=== PATIENT | female | born 1950 | race Caucasian/White ===

== ENCOUNTER 2025-02-27 13:39 | Outpatient (REF) | payer MEDICARE, SELFPAY ==
[2025-02-27 17:29] LABS: Folate 7.3 ng/mL (> or = 4.0); Vitamin B12 362 pg/mL (200-900)
== END 2025-02-27 13:40 | disposition home or self-care (01) ==
LOC: HO.LAB 13:39
PROVIDERS: PCP Internal Medicine; Visit Provider Psychiatry & Neurology Neurology
DX: G20.A1 Parkinson's disease without dyskinesia, without mention of fluctuations (principal); G62.9 Polyneuropathy, unspecified; G31.84 Mild cognitive impairment of uncertain or unknown etiology
CPT/HCPCS: 36415; 82607; 82746; 99202

== ENCOUNTER 2025-02-27 13:39 | Outpatient (AMB) | payer MEDICARE, SELFPAY ==
--- OUTSIDE RECORDS SUMMARY | 2023-10-26 09:30 | XMS_ITS ---
Author Organization [facility] Address [address] [place] [address] Care Team Providers Care Hamper Maker Name Role Phone Sam Varela MD Primary Care Provider Unavail Yannick Saavedra Unavailable [phone] gale Encounters Encounter Location Date Provider Diagnosis [facility] [address] [place] [address] 10/26/2023 Yannick Benton Plan Of Treatment No Information Progress Notes * Dai PAULINO MDOB: 1 (74 yo F)Acc No.[id number]:10/26/2023 Progress Note Patient: Dai ORR Provider: John Benton DPM :1950 A ge:72 Y S ex:Female Date:10/26/2023 Address:[address] [place], [place] [phone] Pcp:Sam Varela MD Subjective: * Chief Complaints: [...] 10/26/2023 Generated for Printi ng/Faxing/eTransmitting on: 0 02/27/2025 03:52 PM EDT
--- NOTE | 2025-02-27 13:57 | MHC.OFFVIS ---
Intake Visit Reasons: ENP-Parkinson/Tremor/Gait/Falls HPI Comments Details: The patient is a 74-year-old female presenting with tremors and possible Parkinson's disease. She reports the onset of tremors on the left side approximately a year ago, extending to the right side in recent months. There was no identifiable trigger or activity-related worsening or alleviating factor. While the tremors occasionally affect her handwriting, she denies it impacting daily activities significantly. There is an existent concern regarding her osteoarthritis, primarily affecting her knees and fingers. The patient also experiences stress-related symptoms due to her 's advanced Alzheimer's dementia, significantly impacting her quality of life. She reports no seizures or signs indicative of epilepsy. She denies any family history of Parkinson?s but has been dealing with multiple stressors, including her ?s health and a history of overcoming COVID-19 infections. Review of Systems Const Details: - Neurologic: Reports tremors in both arms; Denies difficulty with walking, eating with utensils, or significant motor impairment - Musculoskeletal: Reports osteoarthritis pain in knees and fingers - Sleep: Denies sleep disturbances such as kicking or shouting at night - General: Reports stress related to 's Alzheimer's dementia - Endocrine: Reports pre-diabetes status - Ophthalmologic/Rhinologic: Denies any specific deficits Physical Exam Neuro Other: Mental Status: Alert and oriented to person, place, and time. Normal attention. Normal spontaneous speech, fluency, and comprehension. Cranial Nerves: CN II: Visual romeo full to confrontation, visual acuity intact. CN III, IV, : Pupils equal, round, reactive to light and accommodation. Extraocular movements are normal. CN V: Facial sensation is normal. CN VII: Facial movements symmetrical. CN VIII: Hearing intact to bedside conversation is normal. CN IX, X: Palate elevates symmetrically. CN XI: Shoulder shrug and head turn symmetrical. CN XII: Tongue midline without atrophy or fasciculations. Motor: Mild diffuse atrophy in forelegs. Reflexes: DTRs are absent and planter reflexes are absent. Coordination: [id number] is ok Gait and Station: No obvious gait abnormality. No ataxia or instability. Extrapyramidal: Slightly decreased facial expression and blinking. Mild b/l hand resting tremor. Speech: Normal; no dysarthria or tremor. Assessment & Plan Assessment & Plan (1) Parkinson disease: Code(s): G20.A1 - Parkinson's disease without dyskinesia, without mention of fluctuations Category: Medical Qualifiers: Dyskinesia presence: without dyskinesia Fluctuating manifestations: without fluctuating manifestations Qualified Code(s): G20.A1 - Parkinson's disease without dyskinesia, without mention of fluctuations (2) Peripheral neuropathy: Code(s): G62.9 - Polyneuropathy, unspecified Category: Medical Qualifiers: Peripheral neuropathy type: polyneuropathy, unspecified Qualified Code(s): G62.9 - Polyneuropathy, unspecified (3) MCI (mild cognitive impairment): Code(s): G31.84 - Mild cognitive impairment of uncertain or unknown etiology Category: Medical Plan Impression: a: Mild Parkinson disease with significant arthritis, probably osteoarthritis type. b: Peripheral neuropathy c: MCI Rec: Try Carbidopa/levodopa 25/100 one in am and noontime. Orders: Orders MR head/brain wo con Today G20.A1 - Parkinson's disease without dyskinesia, without mention of fluctuations NE nerve conduction velocity Today G62.9 - Polyneuropathy, unspecified NE electromyogram (EMG) Today G62.9 - Polyneuropathy, unspecified Vitamin B12 and Folate Today G31.84 - Mild cognitive impairment of uncertain or unknown etiology Coding Level of Care Code New Pt Level 4 (88875) Diagnoses Parkinson's disease without dyskinesia or fluctuating manifestations G20.A1 Dyskinesia presence: without dyskinesia Fluctuating manifestations: without fluctuating manifestations Peripheral polyneuropathy G62.9 Peripheral neuropathy type: polyneuropathy, unspecified MCI (mild cognitive impairment) G31.84
--- OUTSIDE RECORDS SUMMARY | 2025-02-27 15:53 | XMS_ITS | Patient Health Record ---
Author [facility] Address [address] [facility] [place] [address] Care Team Providers Care Prekindergarten Teacher Name Role Phone Sam Varela MD Primary Care Provider Unavail able Yannick Benton Unavailable [phone] Allergies Allergen (clinical drug ingredient) Drug/Non Drug Allergy documented on EMR Reaction Allergy Type Onset Date Status amoxicillin Amoxicillin Unknown Drug Allergy Act doug acetaminophen / oxycodone Percocet hallucinations Drug Allergy Active Shrimp Flavor upset stomach Drug Allergy Active Vicodin sick Drug Allergy Active tylenol with codeine Unknown Drug Allergy Active Penicillin rash Drug Allergy Active Shellfish (FN) Shellfish-derived Products Unknown Drug Allergy Active Results Component Value Reference Range Notes HEMOGLOBIN A1C (GLYCOHEMOGLO BIN) Reviewed date:03/31/2024 01:51:23 PM Interpretation: Performing Lab: Notes/Report: TOTAL HEMOGLOBIN (HGBA1C) 7.0 Reason For Referral No Information Medications Medication SIG (Take, Route, Frequency, Duration) Notes Start Date End Date Status Baby Aspirin Low dose 81mg Active Premarin 0.3mg 1xd Not-T aking Benazepril HCl 40 MG 1 tablet Orally Onc e a day Active Vitamin E Not-Taking Biotin 1000mcg Once a day Acti ve amLODIPine Besy-Benazepril HCl 5-40 MG as directed Orally Not-Takin g Chlorthalidone 25 MG 1 tablet in the morning with food Orally Once a day Active Aspir-81 Not-Taking Centrum Silver 1xd Activ e Citracal + D once a day Active Flaxseed (Linseed) 1000mg once a day Active Horse [place] 400 1 time daily Active metFORMIN HCl 1000 MG as directed Orally 500 AM 500PM Active Meloxicam 7.5 MG Orally Once a day Active Melatonin 3 MG 1 tablet at bedtime as needed with food Orally Once a day PRN Active Metoprolol & Diet Manage Prod 25 MG once a day Active Prevnar Active Pneumovax 23 Active Stool Softener Activ e Rosuvastatin Calcium 20 MG Oral; Duration: 90 Active Lotrel 10/20mg 1xd Not-T aking Lopid 600mg 2x d Not-Taki ng Vitamin D 1000iu 1xd Act doug ZyrTEC 10mg as needed PRM Active Extra Depth Orthopedic Shoes (1 Pair) with Customized Heat Molded Multidensity Innersoles (3 Pair) as directed Dx: NIDDM/Polyneuropathy (E11.42), Hammertoe Foot Deformity (M20.41,M20.42), Preulcerative Skin Lesion(s) (L85.1 04/19/2020 Active Extra Depth Diabetic Shoes with 3 Pair Custom heat-molded multi-density innersoles for 1 year Dx: Active Fluzone Not-Taking Crestor Not-Taking Immunizations Vaccine Route Administration Date Status Comme nts Influenza Unknown 02/22/2020 Administered Influenza Unknown 03/27/2022 Administered Pneumococcal Unknown 04/10/2020 Administered COVID-19 Moshe & Moshe/[place] Unknown 05/09/2021 R efused Social History Tobacco Use: Social History Observation Description Date Details (start date - stop date) Former Smoker NA - NA Tobacco Use/Smoking Question Answer Notes Are you a: former smoker Additional Findings: Tobacco Non-User Current no n-smoker Tobacco use other than smoking: Question Answer Notes Are you an other tobacco user? No Problems Problem Type SNOMED Code ICD Code Onset Dates Problem Status W/U Status Risk Notes Problem Acquired hammer toe of right foot (2254504281241530 ) Other hammer toe(s) (acquired), right foot (M20.41) Active confirmed Problem Acquired hammer toe of left foot (8948592890380660 ) Other hammer toe(s) (acquired), left foot (M20.42) Active confirmed Problem Polyneuropathy due to type 2 diabetes mellitus (889045421) Type 2 diabetes mellitus with diabetic polyneuropathy (E11.42) Active confirmed Vital Signs Blood pressure diastolic 73 mm Hg 03/31/2024 Height 5ft6in in 03/31/2024 Blood pressure systolic 111 mm Hg 03/31/2024 Weight 145 lbs 03/31/2024 BMI 23.4 kg/m2 03/31/2024 Encounters Encounter Location Date Provider Diagnosis [facility] [address] [place] [address] 03/31/2024 Yannick Benton Tinea unguium B35.1 ; Type 2 diabetes mellitus with diabetic polyneuropathy E11.42 ; Pain in right toe(s) M79.674 ; Pain in left toe(s) M79.675 ; Xerosis cutis L85.3 ; Other hammer toe(s) (acquired), left foot M20.42 ; Other hammer toe(s) (acquired), right foot M20.41 and Ingrowing nail L60.0 Assessments Encounter Date Diagnosis (ICD Code) Assessment Notes Treatment Notes Treatment Clinical Notes Section Notes 03/31/2024 Tinea unguium (ICD-10 - B35.1) 03/31/2024 Type 2 diabetes mellitus with diabetic polyneuropathy (ICD-10 - E11.42) 03/31/2024 Pain in right toe(s) (ICD-10 - M79.674) 03/31/2024 Pain in left toe(s) (ICD-10 - M79.675) 03/31/2024 Xerosis cutis (ICD-10 - L85.3) 03/31/2024 Other hammer toe(s) (acquired), left foot (ICD-10 - M20.42) 03/31/2024 Other hammer toe(s) (acquired), right foot (ICD-10 - M20.41) 03/31/2024 Ingrowing nail (ICD-10 - L60.0) Plan Of Treatment Pending Test Test Name Order Date 97500-ZZFSNMY NAIL, 6 OR MORE 05/12/2016 27847-AXYGKEX NAIL, 6 OR MORE 09/10/2016 48283-LVVYDEY NAIL, 6 OR MORE 12/25/2016 65558-NZIWOTU NAIL, 6 OR MORE 03/04/2017 88235-CMWFTYR NAIL, 6 OR MORE 05/11/2017 90830-LPZLQIA NAIL, 6 OR MORE 07/20/2017 08137-OXAICEL NAIL, 6 OR MORE 10/22/2017 07266-UDAZJPD NAIL, 6 OR MORE 04/12/2018 22925-SDOCWSD NAIL, 6 OR MORE 12/31/2017 12088-CNTWRRD NAIL, 1-5 12/19/2015 38672-Mlit Destruction, 1-14 02/17/2011 73506-Fmdw Destruction, 1-14 03/26/2011 23538-Fprw Destruction, 1-14 05/26/2011 88635-Fwvkmwqz Plate 05/26/2011 46836-Cvarpmxc Plate 12/19/2015 40012-Ypeuvedi Plate 01/30/2016 68172-CHS 11/30/2017 08845- Debride <25 sq cm 12/16/2017 93606- Debride <25 sq cm 12/31/2017 13307- Debride <25 sq cm 02/15/2016 16095- Debride <25 sq cm 01/03/2016 86048- Debride <25 sq cm 02/01/2018 11116- Debride <25 sq cm 01/21/2017 97126-UFUFLAV SKIN/TISSUE 01/14/2017 10937-KEFH SKIN LESIONS, OVER 4 09/14/19 20 97664-YWWG SKIN LESIONS, OVER 4 11/21/19 20 76264-MWSR SKIN LESIONS, OVER 4 02/13/20 20 44455-NSGC SKIN LESIONS, OVER 4 04/19/20 20 99453-XRGI SKIN LESIONS, OVER 4 07/12/19 21 74794-ZNLB SKIN LESIONS, OVER 4 09/25/19 21 60341-OGYY SKIN LESIONS, OVER 4 12/04/19 21 28275-XZWI SKIN LESIONS, OVER 4 03/04/20 21 81681-JOVG SKIN LESIONS, OVER 4 05/09/20 21 20417-AFFL SKIN LESIONS, OVER 4 07/24/19 22 19299-CDKD SKIN LESIONS, OVER 4 09/26/19 22 06684-XBHO SKIN LESIONS, 2 TO 4 01/13/20 19 37546-QIRY SKIN LESIONS, 2 TO 4 03/17/20 19 54930-XQCU SKIN LESIONS, 2 TO 4 06/01/20 19 20946-BHQJDWCB OF HEMATOMA/FLUID 020 Insurance Providers Payer Name Payer Address Payer Phone Subscriber Number Group Number Insured Name Patient Relationship to Insured Coverage Start Date Coverage End Date Medicare National Govt Svcs Inc [address] [place] [address] [id number] Dai Paulino Self - patient is the insured 6 [employer] Blue Shield [address] [place] [address] [id number] Dai Paulino Self - patient is the insured Medical (General) History Medical History History ICD Code mumps hypertension psoriasis eczema measles chicken pox celiac disease liver disease Arthritis Cataracts High blood pressure Warts Osteopenia Abnormal liver PVC/Heart Murmer Pre type II diabetes Overactive bladder (OAB) Lichens Sclerosis Bifasciular Block Surgical History Surgery Date(Month/Year) back surgery 1995 rotator cuff tear repair 1996 shoulder surgery 1996 hysterectomy 1992 laser eye surgery PNA LT gteat toe 01/01/2017 teeth extraction 10/08/20 biopsy on face spot 03/2021 Mammogram Screening 04/21/22
== END 2025-02-27 14:22 | disposition home or self-care (01) ==
LOC: HO.HSM 13:40
PROVIDERS: PCP Internal Medicine; Visit Provider Psychiatry & Neurology Neurology
DX: G20.A1 Parkinson's disease without dyskinesia, without mention of fluctuations (principal); G62.9 Polyneuropathy, unspecified; G31.84 Mild cognitive impairment of uncertain or unknown etiology
CPT/HCPCS: 99204

== ENCOUNTER 2025-02-28 13:46 | Outpatient (REF) | payer MEDICARE, SELFPAY ==
--- OUTSIDE RECORDS SUMMARY | 2023-10-26 09:30 | XMS_ITS ---
Author Organization [facility] Address [address] [place] [address] Care Team Providers Care Graphic Design Intern Name Role Phone Sam Varela MD Primary Care Provider Unavail Yannick Saavedra Unavailable [phone] gale Encounters Encounter Location Date Provider Diagnosis [facility] [address] [place] [address] 10/26/2023 Yannick Benton Plan Of Treatment No Information Progress Notes * Dai PAULINO MDOB: 1 (74 yo F)Acc No.[id number]:10/26/2023 Progress Note Patient: Dai ORR Provider: John Benton DPM :1950 A ge:72 Y S ex:Female Date:10/26/2023 Address:[address] [place], [place] [id number] Pcp:Sam Varela MD Subjective: * Chief Complaints: [...] 0 10/26/2023 Generated for Printi ng/Faxing/eTransmitting on: 02/28/2025 04:29 PM EDT
--- NOTE | 2025-02-28 15:03 | EMG_ITS ---
Chief complaint: Numbness Reason for referral: peripheral polyneuropathy Referred by:?Dr Yee Procedure done: Nerve conduction study lower extremities Bilateral tibial and peroneal motor studies were performed bilateral superficial peroneal and sural sensory studies were performed tibial H reflexes were obtained and EMG needle examination was performed. Impression: Mild axonal sensory motor peripheral neuropathy MTDD
--- OUTSIDE RECORDS SUMMARY | 2025-02-28 16:30 | XMS_ITS | Patient Health Record ---
[facility] Address [address] [facility] [place] [address] Care Team Providers Care Rolled Gold Plater Name Role Phone Sam Varela MD Primary Care Provider Unavail able Yannick Benton Unavailable [phone] Allergies Allergen (clinical drug ingredient) Drug/Non Drug [...] (Linseed) 1000mg once a day Active Horse [place] 400 1 time daily Active metFORMIN HCl [...] Problem Acquired hammer toe of right foot (8549269819724024 ) Other hammer toe(s) (acquired), right foot (M20.41) Active confirmed Problem Acquired hammer toe of left foot (0135247435278053 ) Other hammer toe(s) (acquired), left foot (M20.42) Active confirmed Problem Polyneuropathy due to type 2 diabetes mellitus (066989693) Type 2 diabetes mellitus with diabetic polyneuropathy (E11.42) Active confirmed Vital Signs Blood pressure diastolic 73 mm Hg 03/31/2024 Height 5ft6in in 03/31/2024 Blood pressure systolic 111 mm Hg 03/31/2024 Weight 145 lbs 03/31/2024 BMI 23.4 kg/m2 03/31/2024 Encounters Encounter Location Date Provider Diagnosis [facility] [address] [place] [address] 03/31/2024 Yannick Benton Tinea unguium B35.1 ; [...] Treatment Pending Test Test Name Order Date 02907-NRBEILL NAIL, 6 OR MORE 05/12/2016 51272-ZDDEGWK NAIL, 6 OR MORE 09/10/2016 47349-RFJUYUU NAIL, 6 OR MORE 12/25/2016 04084-LXVDHVH NAIL, 6 OR MORE 03/04/2017 64428-IBZFMAN NAIL, 6 OR MORE 05/11/2017 69343-NHPJVUR NAIL, 6 OR MORE 07/20/2017 44036-KYBEWXN NAIL, 6 OR MORE 10/22/2017 60562-PONTZXK NAIL, 6 OR MORE 04/12/2018 57916-KAWGRZK NAIL, 6 OR MORE 12/31/2017 34668-TRONVCG NAIL, 1-5 12/19/2015 96100-Femv Destruction, 1-14 02/17/2011 99381-Lnhk Destruction, 1-14 03/26/2011 57560-Jlrw Destruction, 1-14 05/26/2011 51587-Iewesebq Plate 05/26/2011 85473-Nwtqilhe Plate 12/19/2015 42622-Liuouwnm Plate 01/30/2016 20124-TJA 11/30/2017 01238- Debride <25 sq cm 12/16/2017 93361- Debride <25 sq cm 12/31/2017 59861- Debride <25 sq cm 02/15/2016 46809- Debride <25 sq cm 01/03/2016 48173- Debride <25 sq cm 02/01/2018 91225- Debride <25 sq cm 01/21/2017 35298-GZUNDOH SKIN/TISSUE 01/14/2017 81788-CYKO SKIN LESIONS, OVER 4 09/14/19 20 30119-CUNN SKIN LESIONS, OVER 4 11/21/19 20 82924-DXNB SKIN LESIONS, OVER 4 02/13/20 20 10180-IMDJ SKIN LESIONS, OVER 4 04/19/20 20 32409-WJKO SKIN LESIONS, OVER 4 07/12/19 21 77445-CIAQ SKIN LESIONS, OVER 4 09/25/19 21 13064-COOM SKIN LESIONS, OVER 4 12/04/19 21 46806-MLWI SKIN LESIONS, OVER 4 03/04/20 21 46252-NTEY SKIN LESIONS, OVER 4 05/09/20 21 89501-SHOL SKIN LESIONS, OVER 4 07/24/19 22 56777-XFWX SKIN LESIONS, OVER 4 09/26/19 22 09970-MZQZ SKIN LESIONS, 2 TO 4 01/13/20 19 93546-MGLA SKIN LESIONS, 2 TO 4 03/17/20 19 23280-DHQZ SKIN LESIONS, 2 TO 4 06/01/20 19 77446-CEVTKMMA OF HEMATOMA/FLUID 020 Insurance Providers Payer Name Payer Address Payer Phone Subscriber Number Group Number Insured Name Patient Relationship to Insured Coverage Start Date Coverage End Date Medicare National Govt Svcs Inc [address] [place] [address] [id number] Dai Paulino Self - patient is the insured 6 [employer] Blue Shield [address] [place] [address] [id number] Dai Paulino Self - patient is the [...]
== END 2025-02-28 13:47 | disposition home or self-care (01) ==
LOC: HO.NEURO 13:46
PROVIDERS: PCP Internal Medicine; Visit Provider Psychiatry & Neurology Neurology
DX: G62.9 Polyneuropathy, unspecified (principal); R20.0 Anesthesia of skin
CPT/HCPCS: 95886; 95911

== ENCOUNTER → 2025-02-28 15:03 | Outpatient (BNV) | payer MEDICARE, SELFPAY | PROVIDERS: PCP Internal Medicine; Visit Provider Psychiatry & Neurology Neurology | DX: G62.9 Polyneuropathy, unspecified (principal) | CPT/HCPCS: 95886; 95911 ==

== ENCOUNTER 2025-03-14 16:34 | Outpatient (REF) | payer MEDICARE, SELFPAY ==
--- OUTSIDE RECORDS SUMMARY | 2023-10-26 09:30 | XMS_ITS ---
Author Organization [facility] Address [address] [place] [address] Care Team Providers Care Sizing Machine Operator Name Role Phone Sam Varela MD Primary Care Provider Unavail Yannick Saavedra Unavailable [phone] gale Encounters Encounter Location Date Provider Diagnosis [facility] [address] [place] [address] 10/26/2023 Yannick Benton Plan Of Treatment No Information Progress Notes * Dai PAULINO MDOB: 1 (74 yo F)Acc No.[id number]:10/26/2023 Progress Note Patient: Dai ORR Provider: John Benton DPM :1950 A ge:72 Y S ex:Female Date:10/26/2023 Address:[address] [place], [place] [id number] Pcp:Sam Varela MD Subjective: * Chief Complaints: [...] 10/26/2023 Generated for Printi ng/Faxing/eTransmitting on: 0 03/14/2025 06:43 PM EDT
--- NOTE | ~2025-03-14 | MR_ITS ---
EXAMINATION: MR BRAIN WITHOUT CONTRAST CLINICAL INFORMATION: Parkinson's disease without dyskinesia. COMPARISON: None available. TECHNIQUE: MRI of the brain was obtained using routine sequences without contrast. FINDINGS: No restricted diffusion. No abnormal susceptibility signal pattern in the substantia nigra/no absent swallow tail sign. No acute intracranial hemorrhage, mass effect, midline shift, hydrocephalus or herniation. Prominence of the extra-axial CSF spaces cerebral sulci and ventricles. Anders-white matter differentiation is normal. Posterior cranial fossa contents demonstrated no signal abnormality or gross masses. Normal position of the cerebellar tonsils. 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 Sellar/suprasellar region demonstrated no gross signal abnormality or masses. Flow-void signal within the main cerebral vessels is normal. MR/MR head/brain wo con IMPRESSION: No acute brain abnormality. No signal abnormality to suggest Parkinson's disease by imaging. Electronically signed by: Jose Calixto MD 03/15/2025 07:06 AM EDT
--- OUTSIDE RECORDS SUMMARY | 2025-03-14 18:43 | XMS_ITS | Patient Health Record ---
Author [facility] Address [address] [place] [address] Care Team Providers Care Farm Management Supervisor Name Role Phone Sam Varela MD Primary Care Provider Unavail able Yannick Benton Unavailable [phone] Allergies Allergen (clinical drug ingredient) Drug/Non Drug [...] (Linseed) 1000mg once a day Active Horse [place] 400 1 time daily Active metFORMIN HCl [...] Problem Acquired hammer toe of right foot (7985505302063822 ) Other hammer toe(s) (acquired), right foot (M20.41) Active confirmed Problem Acquired hammer toe of left foot (3840043787800392 ) Other hammer toe(s) (acquired), left foot (M20.42) Active confirmed Problem Polyneuropathy due to type 2 diabetes mellitus (295995802) Type 2 diabetes mellitus with diabetic polyneuropathy (E11.42) Active confirmed Vital Signs Blood pressure diastolic 73 mm Hg 03/31/2024 Height 5ft6in in 03/31/2024 Blood pressure systolic 111 mm Hg 03/31/2024 Weight 145 lbs 03/31/2024 BMI 23.4 kg/m2 03/31/2024 Encounters Encounter Location Date Provider Diagnosis [facility] [place] [address] [place] [address] 03/31/2024 Yannick Benton Tinea unguium B35.1 ; [...] Treatment Pending Test Test Name Order Date 16984-QOXYKYV NAIL, 6 OR MORE 05/12/2016 86829-APSOFTW NAIL, 6 OR MORE 09/10/2016 54969-XLKIZOS NAIL, 6 OR MORE 12/25/2016 88271-FBUALQS NAIL, 6 OR MORE 03/04/2017 78086-BGVKFXW NAIL, 6 OR MORE 05/11/2017 67577-MUQQYFN NAIL, 6 OR MORE 07/20/2017 00508-HOMHMKN NAIL, 6 OR MORE 10/22/2017 18616-JBANLKY NAIL, 6 OR MORE 04/12/2018 10949-KIXLIHL NAIL, 6 OR MORE 12/31/2017 57655-FAJWTLM NAIL, 1-5 12/19/2015 99975-Kavu Destruction, 1-14 02/17/2011 07210-Rphe Destruction, 1-14 03/26/2011 50869-Wpue Destruction, 1-14 05/26/2011 00778-Flvlvlam Plate 05/26/2011 05175-Qgqscxpn Plate 12/19/2015 48379-Whmlccll Plate 01/30/2016 25239-OXG 11/30/2017 76956- Debride <25 sq cm 12/16/2017 08832- Debride <25 sq cm 12/31/2017 91220- Debride <25 sq cm 02/15/2016 90956- Debride <25 sq cm 01/03/2016 01981- Debride <25 sq cm 02/01/2018 79632- Debride <25 sq cm 01/21/2017 32607-JRBYQUF SKIN/TISSUE 01/14/2017 22547-BXSZ SKIN LESIONS, OVER 4 09/14/19 20 31945-ZFSZ SKIN LESIONS, OVER 4 11/21/19 20 09193-QOBO SKIN LESIONS, OVER 4 02/13/20 20 03819-ZPNF SKIN LESIONS, OVER 4 04/19/20 20 71871-AKWM SKIN LESIONS, OVER 4 07/12/19 21 92338-AIAH SKIN LESIONS, OVER 4 09/25/19 21 30451-PJFV SKIN LESIONS, OVER 4 12/04/19 21 67107-VXIL SKIN LESIONS, OVER 4 03/04/20 21 17453-CJMZ SKIN LESIONS, OVER 4 05/09/20 21 48387-TUES SKIN LESIONS, OVER 4 07/24/19 22 91603-LDMQ SKIN LESIONS, OVER 4 09/26/19 22 94244-QFPJ SKIN LESIONS, 2 TO 4 01/13/20 19 90776-AQNC SKIN LESIONS, 2 TO 4 03/17/20 19 83936-RMWD SKIN LESIONS, 2 TO 4 06/01/20 19 02056-STTPKBPX OF HEMATOMA/FLUID 020 Insurance Providers Payer Name Payer Address Payer Phone Subscriber Number Group Number Insured Name Patient Relationship to Insured Coverage Start Date Coverage End Date Medicare National Govt Svcs Inc [address] [place] [address] [id number] Dai Paulino Self - patient is the insured 6 [employer] Blue Shield [address] [place] [address] [phone] [id number] Dai Paulino Self - patient is the [...]
== END 2025-03-14 16:35 | disposition home or self-care (01) ==
LOC: HO.MRI 16:34
PROVIDERS: PCP Internal Medicine; Visit Provider Psychiatry & Neurology Neurology
DX: G20.A1 Parkinson's disease without dyskinesia, without mention of fluctuations (principal)
CPT/HCPCS: 70551

== ENCOUNTER → 2025-03-14 16:44 | Outpatient (BNV) | payer MEDICARE, SELFPAY | PROVIDERS: PCP Internal Medicine; Visit Provider Radiology Diagnostic Radiology | DX: G20.A1 Parkinson's disease without dyskinesia, without mention of fluctuations (principal) | CPT/HCPCS: 70551 ==

== ENCOUNTER 2025-03-21 13:54 | Outpatient (AMB) | payer MEDICARE, SELFPAY ==
--- OUTSIDE RECORDS SUMMARY | 2023-10-26 09:30 | XMS_ITS ---
Author Organization [facility] Address [address] [place] [address] Care Team Providers Care Revenue Collector Name Role Phone Sam Varela MD Primary Care Provider Unavail Yannick Saavedra Unavailable [phone] gale Encounters Encounter Location Date Provider Diagnosis [facility] [address] [place] [address] 10/26/2023 Yannick Benton Plan Of Treatment No Information Progress Notes * Dai PAULINO MDOB: 1 (74 yo F)Acc No.[id number]:10/26/2023 Progress Note Patient: Dai ORR Provider: John Benton DPM :1950 A ge:72 Y S ex:Female Date:10/26/2023 Address:[address] [place], [place] [id number] Pcp:Sam Varela MD Subjective: * Chief Complaints: * [address] gale. * Medical History: Objective: * Vitals: Assessment: Plan: * Treatment: * Images: * The named appointment provid er may or may not be the originator of this progress note, and it is not deemed complete until electronically signed by the appointment provider. Sign off status: Pending * Provider: John Benton DPM Date: 0 10/26/2023 Generated for Printi ng/Faxing/eTransmitting on: 0 03/21/2025 03:17 PM EDT
--- NOTE | 2025-03-21 13:57 | A.OFFVIS_ITS ---
Intake Visit Reasons: after MRI HPI Comments Details: 74 years old woman with Parkinson's disease and mild cognitive impairment. She is presenting with tremors associated with her diagnosed Parkinson?s disease. She began treatment with medication on March 02, noting minimal improvement, with tremors remaining evident. Her brain MRI and blood work have returned normal, ruling out other potential causes or contributing factors. The tremors, anticipated as part of a slow disease progression, are a significant concern for daily functioning and symptomatic management. Additionally, the patient reported a severe headache and vomiting episodes experienced on a recent Thursday morning, attributing them to a viral illness rather than medication side effects. Her also experienced gastrointestinal symptoms, supporting this hypothesis. The patient describes mild peripheral neuropathy with symptoms of numbness and tingling in her extremities but notes these are not substantially troubling her at present. Other medical conditions which affect her, such as post-rotator cuff surgery, limit her ability to carry heavy objects without shoulder pain. [facility] Medical History (Updated 03/21/25 @ 14:02 by Keven Yee MD) MCI (mild cognitive impairment) Review of Systems Const Details: - Neurological: Reports tremors, mild numbness, and tingling in extremities; denies loss of consciousness. - Gastrointestinal: Reports vomiting episodes; denies ongoing symptoms. - Head: Reports headache; denies ongoing symptoms. - Musculoskeletal: Reports difficulty with shoulder; acknowledges history of rotator cuff repair. - General: Denies other new or unresolved systemic symptoms. Assessment & Plan Assessment & Plan (1) Parkinson disease: Comment: MRI brain WO at [facility] [place] in Feb 2025: [place] EMG/NCS LEs at [facility] in Feb 2025: Mild axonal SM PN Code(s): G20.A1 - Parkinson's disease without dyskinesia, without mention of fluctuations Category: Medical Qualifiers: Dyskinesia presence: without dyskinesia Fluctuating manifestations: without fluctuating manifestations Qualified Code(s): G20.A1 - Parkinson's disease without dyskinesia, without mention of fluctuations (2) MCI (mild cognitive impairment): Code(s): G31.84 - Mild cognitive impairment of uncertain or unknown etiology Category: Medical (3) Peripheral neuropathy: Code(s): G62.9 - Polyneuropathy, unspecified Category: Medical Qualifiers: Peripheral neuropathy type: polyneuropathy, unspecified Qualified Code(s): G62.9 - Polyneuropathy, unspecified Plan Impression: a: Mild Parkinson disease b: Mild axonal SM neuropathy Rec: a: Carbidopa/levodopa 25/100, 2-3 a day b: Regular light exercise. During the visit, I addressed the management of the patient's Parkinson's disease, reaffirming the continuation of her medication regimen and emphasizing the importance of staying physically active. We discussed that the tremors, while persistent, could be managed by adjusting the medication dosage according to individual daily needs. The patient's recent episode of headache and vomiting was evaluated, and they were attributed to potential viral origins, with home monitoring suggested for resolution. For her mild peripheral neuropathy, we discussed observing the symptoms and addressing them only if they interfere with her lifestyle. Finally, I advised the patient on lifetime adjustments following her rotator cuff surgery, such as avoiding carrying heavy loads to prevent shoulder strain. We also arranged for a six-month follow-up unless her symptoms necessitate earlier intervention. Medications: Refilled carbidopa-levodopa 25-100 mg (Sinemet) 1 tab orally 30-60 min before breakfast and lunch; 180 tabs 1RF Coding Level of Care Code Est Pt Level 4 (24053) Diagnoses Parkinson's disease without dyskinesia or fluctuating manifestations G20.A1 Dyskinesia presence: without dyskinesia Fluctuating manifestations: without fluctuating manifestations MCI (mild cognitive impairment) G31.84 Peripheral polyneuropathy G62.9 Peripheral neuropathy type: polyneuropathy, unspecified
--- OUTSIDE RECORDS SUMMARY | 2025-03-21 15:18 | XMS_ITS | Patient Health Record ---
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 Name Role Phone Sam Varela MD Primary Care Provider Unavail able Yannick Benton Unavailable [phone] Allergies Allergen (clinical drug ingredient) Drug/Non Drug [...] (FN) Shellfish-derived Products Unknown Drug Allergy Active Reason For Referral No Information Medications Medication [...] (Linseed) 1000mg once a day Active Horse Ren[place] 400 1 time daily Active metFORMIN HCl [...] Problem Acquired hammer toe of right foot (1404571493172011 ) Other hammer toe(s) (acquired), right foot (M20.41) Active confirmed Problem Acquired hammer toe of left foot (9552971949784858 ) Other hammer toe(s) (acquired), left foot (M20.42) Active confirmed Problem Polyneuropathy due to type 2 diabetes mellitus (787817506) Type 2 diabetes mellitus with diabetic polyneuropathy (E11.42) Active confirmed Vital Signs Blood pressure diastolic 73 mm Hg 03/31/2024 Height 5ft6in in 03/31/2024 Blood pressure systolic 111 mm Hg 03/31/2024 Weight 145 lbs 03/31/2024 BMI 23.4 kg/m2 03/31/2024 Encounters Encounter Location Date Provider Diagnosis [facility] [place] [address] [place] [address] 03/31/2024 Yannick Benton Tinea unguium B35.1 ; [...] Treatment Pending Test Test Name Order Date 72506-DMFNXOY NAIL, 6 OR MORE 05/12/2016 31194-WTKJCHD NAIL, 6 OR MORE 09/10/2016 12645-ZCLEADE NAIL, 6 OR MORE 12/25/2016 98762-CAYWTCH NAIL, 6 OR MORE 03/04/2017 93920-WBRVMIK NAIL, 6 OR MORE 05/11/2017 56239-MMQDAFO NAIL, 6 OR MORE 07/20/2017 49726-CJJQPEZ NAIL, 6 OR MORE 10/22/2017 24296-KVYPZOW NAIL, 6 OR MORE 04/12/2018 43866-OSKPDMR NAIL, 6 OR MORE 12/31/2017 35413-ZJCKIBF NAIL, 1-5 12/19/2015 44812-Wjud Destruction, 1-14 02/17/2011 97424-Lvmk Destruction, 1-14 03/26/2011 34668-Hbyo Destruction, 1-14 05/26/2011 94310-Cflmvusz Plate 05/26/2011 48920-Yqjegujl Plate 12/19/2015 54826-Jsvuucxk Plate 01/30/2016 73153-LYX 11/30/2017 01314- Debride <25 sq cm 12/16/2017 91750- Debride <25 sq cm 12/31/2017 30777- Debride <25 sq cm 02/15/2016 03901- Debride <25 sq cm 01/03/2016 88269- Debride <25 sq cm 02/01/2018 04859- Debride <25 sq cm 01/21/2017 96302-NGMKGIP SKIN/TISSUE 01/14/2017 57292-BSNI SKIN LESIONS, OVER 4 09/14/19 20 04549-CKSP SKIN LESIONS, OVER 4 11/21/19 20 71518-PFVV SKIN LESIONS, OVER 4 02/13/20 20 76385-LRGT SKIN LESIONS, OVER 4 04/19/20 20 65136-IFRR SKIN LESIONS, OVER 4 07/12/19 21 27215-GGFO SKIN LESIONS, OVER 4 09/25/19 21 90253-MKTF SKIN LESIONS, OVER 4 12/04/19 21 66481-FXAJ SKIN LESIONS, OVER 4 03/04/20 21 76412-GAZO SKIN LESIONS, OVER 4 05/09/20 21 79438-NTYS SKIN LESIONS, OVER 4 07/24/19 22 49831-SMLE SKIN LESIONS, OVER 4 09/26/19 22 39616-JBQO SKIN LESIONS, 2 TO 4 01/13/20 19 34763-MUCS SKIN LESIONS, 2 TO 4 03/17/20 19 04227-UQUG SKIN LESIONS, 2 TO 4 06/01/20 19 58320-WDADLCIN OF HEMATOMA/FLUID 020 Insurance Providers Payer Name Payer Address Payer Phone Subscriber Number Group Number Insured Name Patient Relationship to Insured Coverage Start Date Coverage End Date Medicare National [employer] [address] [place] [address] [id number] Dai Paulino Self - patient is the insured 6 [employer] [address] [place] [address] [id number] Jefferson Dai Self - patient is the insured Medical [...]
== END 2025-03-21 14:11 | disposition home or self-care (01) ==
LOC: HO.HSM 13:55
PROVIDERS: PCP Internal Medicine; Visit Provider Psychiatry & Neurology Neurology
DX: G20.A1 Parkinson's disease without dyskinesia, without mention of fluctuations (principal); G31.84 Mild cognitive impairment of uncertain or unknown etiology; G62.9 Polyneuropathy, unspecified
CPT/HCPCS: 99214

== ENCOUNTER → 2025-03-21 13:54 | Outpatient (BNVA) | payer MEDICARE, SELFPAY | PROVIDERS: PCP Internal Medicine; Visit Provider Psychiatry & Neurology Neurology | DX: G20.A1 Parkinson's disease without dyskinesia, without mention of fluctuations (principal); G31.84 Mild cognitive impairment of uncertain or unknown etiology; G62.9 Polyneuropathy, unspecified | CPT/HCPCS: 99212 ==